=== PATIENT | female | born 1940 | race Caucasian/White ===

== ENCOUNTER 2021-03-04 07:47 | Observation (INO) | payer MEDICARE, SELFPAY ==
[2021-03-04] VITALS (8 sets, daily range): BP systolic 138–156; BP diastolic 50–89; PULSE 76–102; RESP 16–30; TEMP 36.1–36.8; O2SAT 90–100; BMI 16.7
--- NOTE | ~2021-03-04 | CT_ITS ---
EXAMINATION: CTA chest PE protocol DATE: 03/04/2021 12:18 CDT INDICATION: Abnormal chest x-ray TECHNIQUE: Computed tomographic angiography (CTA) of the chest was performed with 100 mL Omnipaque-35 0 intravenous contrast. The dose-length product was 135.65 mGy-cm. Maximum intensity projection 3D-re constructions of the aorta and other arteries were constructed by the technologist on a separate work station. Automated exposure control and iterative reconstruction technique were employed. COMPARISON: Chest x-ray dated 03/04/2021 FINDINGS: There is right lower lobe collapse. Cannot exclude underlying endobronchial lesion. No sign ificant pleural or pericardial effusion. Study is technically adequate without evidence for pulmonary embolism. There is severe emphysema. There are 2 spiculated nodules in the left upper lobe, largest measuring 1 cm greatest dimension. There is mediastinal shift to the right, consistent with right tho racic volume loss. There is scoliosis. Moderate thoracic spondylosis. No pneumothorax. There is right hilar lymphadenopathy. IMPRESSION: 1. Small spiculated left upper lobe nodules, largest measuring 1 cm. Consider follow-up low dose CT c hest in 3 months or PET/CT examination. 2: Right lower lobe collapse. Cannot exclude endobronchial lesion. Consider pulmonary consultation. 3: Emphysema. 4: Right hilar lymphadenopathy, nonspecific. Reviewed, dictated and finalized at location A. IMPRESSION: 1. Small spiculated left upper lobe nodules, largest measuring 1 cm. Consider f ollow-up low dose CT chest in 3 months or PET/CT examination. 2: Right lower lobe collapse. Cannot exclude endobronchial lesion. Consider pu lmonary consultation. 3: Emphysema. 4: Right hilar lymphadenopathy, nonspecific.
--- NOTE | ~2021-03-04 | XR_ITS ---
XR chest 2V 03/04/2021 08:18 Indication: Weakness. Loss of appetite. Procedure: PA and lateral views of the chest Comparison: No prior studies for comparison. Findings: There is right lower lobe airspace consolidation which may represent atelectasis, although superimposed pneumonia is not excluded. Small right pleural effusion. Heart size normal. The lungs ar e hyperinflated which is consistent with, but not diagnostic of chronic obstructive pulmonary disease . Impression: 1: Right lower lobe consolidation which may represent atelectasis and/or pneumonia. Cannot exclude ce ntrally obstructing endobronchial lesion. 2: Small right pleural effusion. Reviewed, dictated and finalized at location A. Impression: 1: Right lower lobe consolidation which may represent atelectasis and/or pneumo emelina. Cannot exclude centrally obstructing endobronchial lesion. 2: Small right pleural effusion.
--- NOTE | 2021-03-04 07:56 | ECG_ITS ---
Measurements Intervals [place] Rate: 78 P: 52 DE: 131 QRS: 65 QRSD: 106 T: 123 QT: 401 QTc: 457 Interpretive Statements SINUS RHYTHM VENTRICULAR PREMATURE COMPLEX BASELINE ARTIFACT- I, II, III, AVR, AVL, AVF, V1, V3-V6 BORDERLINE ECG Electronically Signed On 03-04-2021 16:33:23 CDT by Jose Arriaga D.O.
[2021-03-04 08:20] LABS: Basophils Absolute Auto 0.1 K/mm3 (0.0-0.1); Basophils Percent Auto 0.4 % (0.2-1.2); Hematocrit 46.2 % (37.0-47.0); Hemoglobin 15.5 g/dL (12.0-15.0); Immature Granulocyte Percent A 0.7 % (0-0.5); Lymphocytes Absolute Auto 1.92 K/mm3 (0.9-3.2); Lymphocytes Percent Auto 13.7 % (18.3-44.2); Mean Corpuscular HGB Conc 33.5 g/dl (32-36); Mean Corpuscular Hemoglobin 31.5 pg (26-34); Mean Corpuscular Volume 93.9 fl (80-100); Mean Platelet Volume 9.8 fl (7.4-10.4); Monocytes Absolute Auto 1.4 K/mm3 (0.1-0.6); Monocytes Percent Auto 9.9 % (2.6-8.5); Neutrophils Absolute Auto 10.6 K/mm3 (1.3-6.7); Neutrophils Percent Auto 75.3 % (45.5-73.1); Platelet Count Result 349 k/mm3 (150-375); Red Blood Count 4.92 M/mm3 (4.2-5.4); Red Cell Distribution Width 13.2 % (11.5-14.5)
[2021-03-04 08:30] LABS: Alanine Aminotransferase 14 U/L (4-35); Albumin Level 3.7 g/dL (3.5-5.1); Alkaline Phosphatase 143 U/L (38-126); Anion Gap 16 mmol/L (8-16); Aspartate Amino Transferase 25 U/L (14-36); Bilirubin,Total 0.8 mg/dL (0.2-1.3); Blood Urea Nitrogen 9 mg/dL (7-17); Calcium 9.7 mg/dL (8.4-10.2); Carbon Dioxide 23 mmol/L (22-30); Chloride 96 mmol/L (98-107); Estimated CRCL calculation 65 ml/min; Estimated Glomerular Filt Rate > 60; Glucose 121 mg/dL (65-110); Potassium 3.5 mmol/L (3.4-5.0); Sodium 135 mmol/L (137-145)
--- NOTE | 2021-03-04 12:41 | ED.GENADULT ---
HPI - General Adult General Chief complaint: Weakness Stated complaint: no appetite Time Seen by Provider: 03/04/21 11:13 Source: patient History of Present Illness HPI narrative: Patient is a 81 y/o female complaining of mild to moderate generalized weakness for last 3 days. She states her weakness is worsened by minimal exertion. She has to hold onto things to walk. She also feels sweaty and has chills at times. She has poor appetite. She has no fever, chest pain, cough or SOB. Related Data Home Medications Medication Instructions Recorded Confirmed tramadol 50 mg 03/04/21 Allergies Allergy/AdvReac Type Severity Reaction Status Date / Time No Known Allergies Allergy Unknown Verified 03/04/21 16:00 Review of Systems Constitutional: Constitutional: Reports chills, Reports excessive sweating, Denies fever(s), Denies headache(s) and Reports weakness Eyes: Eyes: Denies blurry vision ENT: Denies headache(s) and Denies neck pain Cardiovascular: Cardiovascular: Denies chest pain and Denies dyspnea Respiratory: Respiratory: Denies cough and Denies dyspnea Gastrointestinal: Gastrointestinal: Denies abdominal pain, Denies diarrhea, Denies nausea and Denies vomiting Genitourinary: Genitourinary: Denies hematuria and Denies dysuria Musculoskeletal: Musculoskeletal: Denies back pain and Denies neck pain Neurologic: Denies headache(s) and Reports weakness PMFSH Past Medical History Medical History Diverticulitis (08/2007) History of peritonitis Following hysterectomy and appendectomy. Surgical History Surgical History (Updated 03/04/21 @ 15:46 by Mónica Nelson PA-C) History of appendectomy History of cataract extraction History of colonoscopy with polypectomy (08/14/07) Benign rectal polyps with evidence of diverticulosis and internal hemorrhoids. History of hysterectomy Family History Family History Other Uterine cancer Social History Social History (Updated 03/04/21 @ 15:46 by Mónica Nelson PA-C) Social History: . Lives in her own home. She has 1 daughter. Two pack-a-day smoker for about 50 years Exam Const: General: no acute distress and well developed Orientation/consciousness: oriented to person, oriented to place, oriented to time and patient oriented x3 HENMT: Head: normocephalic Ears: external ears normal General nose exam: Normal external nose present Eyes: General: appearance normal, both eyes and all related structures Conjunctivae: conjunctivae normal Neck: Neck: normal visual inspection and full ROM Chest: Chest palpation & inspection: normal inspection of the chest and no tenderness Resp: Effort & Inspection: normal respiratory effort Auscultation: clear to auscultation bilaterally Cardio: Rate: regular rate Rhythm: regular rhythm GI: GI Palp: No abdominal tenderness and Yes Soft to palpation Skin: General skin exam: normal color and turgor normal Neuro: General: oriented to person, oriented to place, oriented to time and patient oriented x3 Cognition (Neuro): normal cognition Extrem: General: normal to inspection, full ROM and no pedal edema Psych: Appearance: grossly normal Mental Status: mental status grossly normal Affect: normal affect Course Consultations Consultation #1: Discussed with MEDARDO Sales, who agrees to admit. Date: 03/04/21 Time: 13:02 Consultation #2: Discussed with Dr. Chong, who agrees to consult. Date: 03/04/21 Time: 15:43 Vital Signs Vital signs: Vital Signs Temperature 36.6 C 03/04/21 07:53 Pulse Rate 102 H 03/04/21 07:53 Respiratory Rate 16 03/04/21 07:53 Blood Pressure 148/71 H 03/04/21 07:53 Pulse Oximetry 92 03/04/21 07:53 Temperature 36.8 C 03/04/21 11:50 Pulse Rate 77 03/04/21 15:19 Respiratory Rate 16 03/04/21 15:19 Blood Pressure 146/62 H 03/04/21 1
[2021-03-04 13:28] LABS: Lactic Acid Reflex 1.1 mmol/L (0.7-2.1)
[2021-03-04 14:11] LABS: Add Urine Microscopic? YES; Appearance Urine Clear (Clear); Bilirubin Urine Negative (Negative); Blood Urine 1+ (Negative); Color Urine Yellow (Yellow); Glucose Urine UA Negative (Negative); Ketones Urine 2+ mg/dL (Negative); Leukocyte Esterase Ur Negative LEU/UL (Negative); Mucus Urine Rare /lpf; Nitrate Urine Positive (Negative); Protein Urine 2+ mg/dL (Negative); Squamous Epithelial Cell Urine Rare /hpf (Few); Urobilinogen Urine Negative mg/dL (<2.0)
[2021-03-04 14:30] LABS: Specific Grav Ur 1.053 (1.001-1.035)
--- NOTE | 2021-03-04 15:31 | ADMGEN ---
This patient, Christa Kenny, was admitted to 3 Med Surg Room 307-01 at 1530. Patient/family oriented to hospital policies and general routines including ID bracelet, bed and alarms, visiting hours, pain management, procedures, bathroom and other care routines, personal items, smoking policy, room service/diet, and visiting hours. Information on how to activate the Rapid Response Team has been discussed. Patient/Family are encouraged to report perceived risks to care and to ask questions if they do not understand what they are told or what they should do.
--- NOTE | 2021-03-04 15:45 | PM.IMHP ---
H&P: HPI History of Present Illness Date/Time: 03/04/21 15:45 <Mónica Nelson PA-C - Last Filed: 03/04/21 23:49> Chief Complaint: Weakness. <Mónica Nelson PA-C - Last Filed: 03/04/21 23:49> Narrative: This is an 81-year-old female smoker who presented to the emergency department earlier today with complaints of weakness. She has lost 20 lb unintentionally within the last 6 months or so and it sounds as though her appetite has been next to nothing these past several days. In addition to poor oral intake, she has gotten progressively more weak which prompted her visit today. A chest x-ray showed right lower lobe consolidation which may represent atelectasis or pneumonia and a subsequent chest CTA showed a small spiculated left upper lobe nodules measuring up to 1 cm as well as right lower lobe collapse with possible endobronchial lesion. With further questioning she does mention a cough but that does not seem necessarily unusual for her. The cough has not been productive. She has not had a fever but reports occasional chills. She has not had chest pain, pleuritic pain, or significant shortness of breath. She also denies nausea, vomiting, and diarrhea. No sinus congestion, rhinorrhea, otalgia, or odynophagia. She denies sick contacts. No history of malignancy. No dysphagia or concerns for aspiration. <Mónica Nelson PA-C - Last Filed: 03/04/21 23:49> Review of Systems Review of Systems: Twelve systems were reviewed with pertinent positives and negatives as per HPI. Except as documented, all other systems were reviewed and are negative. <Mónica Nelson PA-C - Last Filed: 03/04/21 23:49> [facility] Past Medical History Medical History: Medical History (Updated 03/05/21 @ 10:17 by Luis A Chong MD) Diverticulitis (08/2007) History of peritonitis Following hysterectomy and appendectomy. Nicotine dependence <Mónica Nelson PA-C - Last Filed: 03/04/21 23:49> Surgical History Surgical History: Surgical History (Updated 03/04/21 @ 15:46 by Mónica Nelson PA-C) History of appendectomy History of cataract extraction History of colonoscopy with polypectomy (08/14/07) Benign rectal polyps with evidence of diverticulosis and internal hemorrhoids. History of hysterectomy <Mónica Nelson PA-C - Last Filed: 03/04/21 23:49> Family History Family History: Family History Other Uterine cancer <Mónica Nelson PA-C - Last Filed: 03/04/21 23:49> Social History Social History: Social History (Updated 03/04/21 @ 23:46 by Mónica Nelson PA-C) Social History: . Lives in her own home. She has 1 daughter. Two pack-a-day smoker for 64 years. Surrogate decision maker: Priti Gomes, daughter. Code status: Full code. <Mónica Nelson PA-C - Last Filed: 03/04/21 23:49> Meds Home Medications and Allergies Home medications: Home Medications Medication Instructions Recorded Confirmed Type tramadol 50 mg PO Q6H 03/04/21 03/04/21 History <Mónica Nelson PA-C - Last Filed: 03/04/21 23:49> Allergies/Adverse reactions: Allergies Allergy/AdvReac Type Severity Reaction Status Date / Time No Known Allergies Allergy Unknown Verified 03/04/21 16:00 <Mónica Nelson PA-C - Last Filed: 03/04/21 23:49> Vital Signs Vital Signs - 24 hr 03/04/21 07:53 03/04/21 11:50 03/04/21 13:44 Temperature 97.9 F 98.3 F Pulse Rate 102 H 76 81 Respiratory Rate 16 30 H 30 H Blood Pressure 148/71 H 156/65 H 138/89 Pulse Oximetry 92 95 100 03/04/21 15:19 Temperature Pulse Rate 77 Respiratory Rate 16 Blood Pressure 146/62 H Pulse Oximetry 100 <Mónica Nelson PA-C - Last Filed: 03/04/21 23:49> Exam Narrative: General: Thin, frail elderly female sitting up in bed no distress. Weight: 40.1 kg. BMI: 16.7. HEENT: Normocephalic, atraumatic. PERRL, EOMI.
[2021-03-04] MEDS: SODIUM CHLORIDE 0.9% IV 1,000 ML 75 ML IV CONT (17:38)
[2021-03-05] VITALS (8 sets, daily range): BP systolic 135–176; BP diastolic 45–74; PULSE 70–92; RESP 14–18; TEMP 35.9–37.2; O2SAT 90–93; BMI 16.7
[2021-03-05 06:42] LABS: Hematocrit 40.7 % (37.0-47.0); Hemoglobin 13.9 g/dL (12.0-15.0); Mean Corpuscular HGB Conc 34.2 g/dl (32-36); Mean Corpuscular Volume 90.6 fl (80-100); Mean Platelet Volume 10.2 fl (7.4-10.4); Platelet Count Result 384 k/mm3 (150-375); Red Blood Count 4.49 M/mm3 (4.2-5.4); White Blood Count 13.7 K/mm3 (4.5-10.0)
[2021-03-05 06:50] LABS: Anion Gap 11 mmol/L (8-16); Blood Urea Nitrogen 7 mg/dL (7-17); Calcium 9.6 mg/dL (8.4-10.2); Carbon Dioxide 26 mmol/L (22-30); Chloride 100 mmol/L (98-107); Estimated CRCL calculation 70 ml/min; Estimated Glomerular Filt Rate > 60; Glucose 114 mg/dL (65-110); Magnesium 2.2 mg/dL (1.6-2.3); Potassium 3.2 mmol/L (3.4-5.0); Sodium 137 mmol/L (137-145)
[2021-03-05] MEDS: ENOXAPARIN 40 MG/0.4 ML SYRINGE SUB-Q (08:30)
[2021-03-05] MEDS: POTASSIUM CHLORIDE 20 MEQ TABLET 40 MEQ PO (08:30)
--- NOTE | 2021-03-05 10:08 | PM.CNPUL ---
Assessment and Plan Assessment and plan (1) Atelectasis, right: Code(s): J98.11 - Atelectasis Status: Acute Assessment and Plan: This 81-year-old female presented with nonspecific respiratory symptoms such as weight and appetite loss of several weeks duration. Diagnostic studies showed complete right lower lobe collapse with possible endobronchial lesion, diffuse centrilobular emphysema and small lung nodule in the left upper lobe measuring less than 3 cm in diameter. In addition there is right hilar lymphadenopathy. There is significant overinflation of the left lung, and mediastinal shifting to the right, which suggest chronic nature of the right lower lobe atelectasis. The right lower lobe collapse is most likely related to endobronchial tumor and less likely to aspiration of a foreign body. No recent chest imaging studies are available for comparison. Had a lengthy discussion with the patient regarding further workup. I specifically told the patient that she may have cancer in the right lung causing collapse of the right lower lobe and for that reason I suggested bronchoscopy. The patient did not want to have bronchoscopy reasoning that even if this is cancer she does not want to have any treatment for it. (2) Incidental lung nodule, less than or equal to 3mm: Code(s): R91.1 - Solitary pulmonary nodule Status: Acute Assessment and Plan: The left upper lobe nodule is highly suspicious for malignancy. The nodule is too small to be biopsied at this point. I would suggest repeat chest CT in about 3 months. (3) Emphysema lung: Code(s): J43.9 - Emphysema, unspecified Status: Acute Assessment and Plan: Patient has had history of heavy smoking for many years. Chest CT showing centrilobular emphysema bilaterally. Currently she is not on any treatment for COPD. She will need pulmonary function testing and follow-up in the outpatient Pulmonary Clinic. Prior to discharging home, I would do assessment for possible treatment with home oxygen. (4) Weight loss: Code(s): R63.4 - Abnormal weight loss Status: Acute History of Present Illness History of Present Illness Consult date: 03/05/21 Chief complaint: pneumonia Narrative: This 81-year-old female presented to the emergency room complaining of weight loss and loss of appetite. The patient stated that her appetite has been very poor over the last few weeks. She also has lost 20 lb over the last couple of months. She denied having other respiratory symptoms such as hemoptysis fever chills, orthopnea, wheezing or chest pain. She has occasional dry cough with no sputum production. She denied having shortness of breath with exertion or at rest. Upon questioning she admitted having had 1 episode of choking approximately 3-4 years ago, while eating steak. Workup in the emergency room with CT PA showed right lower lobe collapse, with possible endobronchial lesion, centrilobular emphysema bilaterally, and small spiculated nodule in the left upper lobe. Review of Systems Review of Systems: The patient denied having shortness of breath on exertion as stated above. She has lost 20 lb over the last few months. She has no chest pain. She denied having orthopnea. She has occasional night sweats. She denied having abdominal pain. She has occasional soft BMs. She has a chronic knee and back arthritis. She has no urinary complaints. She has no skin rashes. [facility] Past Medical History Medical History (Updated 03/05/21 @ 10:17 by Luis A Chong MD) Diverticulitis (08/2007) History of peritonitis Following hysterectomy and appendectomy. Nicotine dependence Surgical History Surgical History (Updated 03/04/21 @ 15:46 by Mónica Nelson PA-C) History of appendectomy History of cataract extraction History of colonoscopy with polypectomy (08/14/07) Benign rectal polyps with evidence of diverticulosis and intelligence intern
--- NOTE | 2021-03-05 12:11 | PM.IMPN ---
Progress Note: A&P Assessment and Plan (1) Right lower lobe pneumonia: Code(s): J18.9 - Pneumonia, unspecified organism Status: Acute (2) Abnormal chest CT: Code(s): R93.89 - Abnormal findings on diagnostic imaging of other specified body structures Status: Acute (3) Dehydration: Code(s): E86.0 - Dehydration Status: Acute (4) Weakness: Code(s): R53.1 - Weakness Status: Acute (5) Abnormal urinalysis: Code(s): R82.90 - Unspecified abnormal findings in urine Status: Acute Additional Plan The patient presents today with weakness and poor oral intake for the last several days however she has lost 20 lb unintentionally in the last 6 months, or last. She has evidence of right lower lobe pneumonia on imaging though there is suspicion for possible endobronchial lesion thus this could be postobstructive pneumonia as well. Will continue with ceftriaxone and azithromycin for now. Sputum to be attempted for culture. Pulmonology was consulted by the emergency department physician regarding the possible mass though the patient tells me that she would not probably want to have any treatment if it were to be cancer. She will be cautiously hydrated with close monitoring of volume status. Initiate fall precautions. PT/OT consulted. Urinalysis is abnormal however she has no symptoms to suggest infection at this time. She declines the need for nicotine patch. 03/05 Interval history: patient remains clinically stable seen by parts chaser and discussed, recommending bronchoscopy to further evaluate lung mass however patient is refusing, there is a concern pneumonia most likely community-acquired will continue ceftriaxone and azithromycin, patient with poor appetite and generalized weakness will consult dietitian and provide PT OT, patient will benefit with acute rehab, there is a concern patient may have COVID-19, patient is tested an isolated continue to monitor and further recommendation to follow. Subjective Date/time seen: 03/05/21 12:11 This is an 81-year-old female smoker who presented to the emergency department earlier today with complaints of weakness. She has lost 20 lb unintentionally within the last 6 months or so and it sounds as though her appetite has been next to nothing these past several days. In addition to poor oral intake, she has gotten progressively more weak which prompted her visit today. A chest x-ray showed right lower lobe consolidation which may represent atelectasis or pneumonia and a subsequent chest CTA showed a small spiculated left upper lobe nodules measuring up to 1 cm as well as right lower lobe collapse with possible endobronchial lesion. With further questioning she does mention a cough but that does not seem necessarily unusual for her. The cough has not been productive. She has not had a fever but reports occasional chills. She has not had chest pain, pleuritic pain, or significant shortness of breath. She also denies nausea, vomiting, and diarrhea. No sinus congestion, rhinorrhea, otalgia, or odynophagia. She denies sick contacts. No history of malignancy. No dysphagia or concerns for aspiration. 03/05 Interval history: patient remains clinically stable seen by parts chaser and discussed, recommending bronchoscopy to further evaluate lung mass however patient is refusing, there is a concern pneumonia most likely community-acquired will continue ceftriaxone and azithromycin, patient with poor appetite and generalized weakness will consult dietitian and provide PT OT, patient will benefit with acute rehab, there is a concern patient may have COVID-19, patient is tested an isolated continue to monitor and further recommendation to follow. Review of Systems Review of Systems: All systems reviewed & are unremarkable except as noted in HPI and below Exam Narrative: elderly frail, malnourished Patient is comfortable, NAD HEENT: eyes are clear and none icteric PATY
[2021-03-05 16:47] LABS: SARS-CoV-2 RNA PCR Negative
[2021-03-06 02:19] VITALS: PULSE 70; RESP 18; O2SAT 92
[2021-03-06 06:00] VITALS: BP 168/74; PULSE 73; RESP 16; TEMP 36.9; O2SAT 95
[2021-03-06 06:58] LABS: Hematocrit 39.8 % (37.0-47.0); Hemoglobin 13.2 g/dL (12.0-15.0); Mean Corpuscular HGB Conc 33.2 g/dl (32-36); Mean Corpuscular Hemoglobin 31.1 pg (26-34); Mean Corpuscular Volume 93.6 fl (80-100); Mean Platelet Volume 10.4 fl (7.4-10.4); Platelet Count Result 363 k/mm3 (150-375); Red Blood Count 4.25 M/mm3 (4.2-5.4); Red Cell Distribution Width 13.1 % (11.5-14.5); White Blood Count 12.3 K/mm3 (4.5-10.0)
[2021-03-06 07:23] LABS: Anion Gap 6 mmol/L (8-16); Blood Urea Nitrogen 5 mg/dL (7-17); Calcium 9.1 mg/dL (8.4-10.2); Carbon Dioxide 26 mmol/L (22-30); Chloride 102 mmol/L (98-107); Estimated CRCL calculation 70 ml/min; Estimated Glomerular Filt Rate > 60; Glucose 103 mg/dL (65-110); Potassium 3.6 mmol/L (3.4-5.0); Sodium 134 mmol/L (137-145)
--- NOTE | 2021-03-06 07:23 | PM.IMPN ---
Progress Note: A&P Additional Plan START OF DOCTOR GUY?S PROGRESS NOTE Subjective: The patient reports no complaints at this time. She inquires about discharge. She denies fever, rigors, nausea, vomiting, cough, wheeze, abdominal pain, chest pain, dyspnea, or any other constitutional complaints. I previously spoke with her regarding her medical condition and regarding the prospects of enrolling in hospice. I have answered all questions Objective: General: -Alert -No acute distress -No dyspnea -No tachypnea Heart: -Regular rate -Regular rhythm -No murmurs -No gallops -No rubs Lungs: -No wheeze -No rhonchi -No rales Abdomen: -Normal bowel sounds in all four quadrants -No rebound -No guarding -No tenderness Extremities: -2/4 pulse in all four extremities -No clubbing -No cyanosis -No edema Additional Details / Additional Findings / Exceptions / Miscellaneous: Pertinent Laboratory Results / Pertinent Radiology Results / Pertinent Diagnostic Results / Pertinent Vital Signs: Blood pressure 168/74, white blood cell count 12.3 Assessment / Plan: Presumed postobstructive pneumonia. A Zithromax 500 mg IV daily plus Rocephin 1 g IV daily Urinary tract infection. Rocephin 1 g IV daily Left upper lobe nodule and right lower lung collapse. Likely malignancy. Patient declines bronchoscopy as she indicates that she would not opt for treatment Diverticulosis Hypertension. Hydralazine 50 mg p.o. t.i.d. Smoker. Patient counseled regarding smoking cessation COPD, non O2 dependent Hypokalemia. Will monitor potassium levels intermittently and supplement as necessary DVT prophylaxis. Lovenox 40 mg subcutaneously daily Disposition: Patient appears medically stable for discharge on this day of March 06, 2021. I will discuss with case management/social work in conjunction with hospice END OF DOCTOR GUY?S PROGRESS NOTE Subjective Date/time seen: 03/06/21 07:23 Objective Data Vital Signs Vital Signs: Vital Signs - 24 hr 03/05/21 10:15 03/05/21 14:10 03/05/21 18:00 Temperature 97.2 F L 97.1 F L 98.7 F Pulse Rate 73 73 80 Respiratory Rate 14 16 16 Blood Pressure 147/57 H 135/45 L 156/62 H Pulse Oximetry 91 92 93 03/05/21 22:00 03/05/21 22:29 03/06/21 02:19 Temperature 98.9 F Pulse Rate 73 70 70 Respiratory Rate 18 18 Blood Pressure 158/52 H 145/74 H Pulse Oximetry 91 92 92 03/06/21 06:00 Temperature 98.5 F Pulse Rate 73 Respiratory Rate 16 Blood Pressure 168/74 H Pulse Oximetry 95 Intake/Output Intake/Output: Intake & Output 03/03/21 03/04/21 03/05/21 03/06/21 23:59 23:59 23:59 23:59 Intake Total 780 2152 150 Output Total 400 400 900 Balance 380 1752 -750 Meds/Results Medications: Active Medications Generic Name Dose Route Start Last Admin Trade Name Freq PRN Reason Stop Dose Admin Albuterol 2 puff 03/04/21 15:58 Albuterol Sulfate (*Sp) Aerosol 1 Puff INHALATION QIDRT PRN Shortness Of Breath Enoxaparin Sodium 40 mg 03/05/21 09:00 03/05/21 08:30 Enoxaparin 40 Mg/0.4 Ml Syringe SUB-Q 40 mg DAILY ILSA Administration Hydralazine HCl 50 mg 03/06/21 09:00 Hydralazine Hcl 50 Mg Tablet PO TID ILSA Ceftriaxone Sodium/Dextrose 1 gm in 50 mls @ 100 mls/hr 03/05/21 12:00 03/05/21 12:23 Rocephin 1 Gm/D5w 50 Ml IVPB Infused NOON ILSA Infusion Azithromycin 500 mg in 250 mls @ 250 mls/hr 03/05/21 12:00 03/05/21 14:45 Zithromax IVPB Infused NOON ILSA Infusion Tramadol HCl 50 mg 03/04/21 23:49 Tramadol Hcl (*Crx) 50 Mg Tablet PO Q6H PRN Pain 4-10 Radiology Results: ITS Impressions Chest X-Ray 03/04/21 08:19 Impression: 1: Right lower lobe consolidation which may represent atelectasis and/or pneumonia. Cannot exclude centrally obstructing endobronchial lesion. 2: Small right pleural effusion. Chest CTA 03/04/21 12:18 IMPRESSION: 1.
--- NOTE | 2021-03-06 07:31 | PM.DS ---
DS: Admitting Diagnosis Discharge Date 7:32 a.m. on March 06, 2021 Admitting Diagnosis Presumed postobstructive pneumonia DS: Summary Hospital Course Hospital Course: See discharge summary below Time Spent with Patient Time attestation: Total time spent providing and/or coordinating discharge services: START OF DOCTOR GUY?S DISCHARGE SUMMARY Date of Admission: March 04, 2021 Date of Discharge: 7:31 a.m. on March 06, 2021 Primary Diagnosis: Presumed postobstructive pneumonia Secondary Diagnosis: Left upper lobe nodule for which patient declined bronchoscopy and indicates she would decline treatment if malignancy was detected Right lower lobe collapse, patient declined bronchoscopy Urinary tract infection Diverticulosis Hypertension Smoker paragraph COPD paragraph hypokalemia Consultations: None Disposition: The patient may follow up with her primary care physician as needed Prior to discharge, will request case management/social work evaluate the patient so that she may receive a referral for hospice Discharge Medications: Azithromycin 250 mg p.o. daily. Quantity 7. 0 refills Vantin 200 mg p.o. b.i.d.. Quantity 14. 0 refills Ultram 50 mg p.o. q.6 hours Hydralazine 50 mg p.o. t.i.d. END OF DOCTOR GUY?S DISCHARGE SUMMARY DS: Data Data Completed and Pending Labs on day of discharge: Labs from last 24 hours 03/06/21 03/06/21 03/05/21 06:13 06:13 10:47 WBC 12.3 H RBC 4.25 Hgb 13.2 Hct 39.8 MCV 93.6 MCH 31.1 MCHC 33.2 RDW 13.1 Plt Count 363 MPV 10.4 Sodium 134 L Potassium 3.6 Chloride 102 Carbon Dioxide 26 Anion Gap 6 L BUN 5 L Creatinine 0.30 L Estim Creat Clear Calc 70 Estimated GFR > 60 Glucose 103 Calcium 9.1 TSH (Reflex) Ur L.pneumophila Ag Pending SARS-CoV-2 RNA (RT-PCR) Urine Pneumococcal Ag Pending 03/05/21 03/04/21 06:11 14:49 WBC RBC Hgb Hct MCV MCH MCHC RDW Plt Count MPV Sodium Potassium Chloride Carbon Dioxide Anion Gap BUN Creatinine Estim Creat Clear Calc Estimated GFR Glucose Calcium TSH (Reflex) 1.260 Ur L.pneumophila Ag SARS-CoV-2 RNA (RT-PCR) Negative Urine Pneumococcal Ag Preliminary micro results at discharge 03/04/21 13:47 Blood Culture - Preliminary Blood 03/04/21 13:47 Blood Culture - Preliminary Blood Discharge Plan Discharge Consulting providers: Luis A Chong Discharging Clinician: Dr. Altman Patient Disposition: Home, Self-Care Activity: as tolerated Diet: low sodium Discharge Instructions: Patient may follow up with her primary care physician as needed Prior to discharge, a request that the patient developed a case management/social work so that she may be referred to hospice which I have discussed with the patient already Patient Instructions: Antibiotic Form, How to Stop Smoking (DC), Pneumonia (DC) Stand Alone Forms: General Discharge Information Follow-up/Referrals: Carina Altman DO [Physician] - Discharge Medications: New hydralazine 50 mg Tablet 50 mg PO TID Qty: 90 RF: 0 azithromycin 250 mg tablet 250 mg PO DAILY 7 Days Qty: 7 RF: 0 cefpodoxime 200 mg tablet 200 mg PO BID Qty: 14 RF: 0 Continued tramadol 50 mg tablet 50 mg PO Q6H RF: 0 Date of admission: 03/04/21 14:01 Primary Care Provider: FARHATDULCE Admitting Provider: Madiha Garner Attending physician on admission: Madiha Garner Condition: Stable Quality VTE Prophylaxis VTE prophylaxis: pharmacologic ordered
[2021-03-06 08:05] VITALS: BP 175/61
[2021-03-06 08:10] VITALS: BP 173/61
[2021-03-06 08:15] VITALS: BP 167/67
[2021-03-06] MEDS: ENOXAPARIN 40 MG/0.4 ML SYRINGE SUB-Q (08:21)
[2021-03-06] MEDS: hydrALAZINE HCL 50 MG TABLET PO (08:21)
[2021-03-08 17:35] LABS: Legionella pneumophila Ag Ur Not Detected (Not Detected)
[2021-03-08 19:29] LABS: Pneumococcal Antigen Urine Not Detected (Not Detected)
== END 2021-03-06 09:45 | disposition home or self-care (01) ==
LOC: ANHED 11:13 → ANH3MEDSUR 15:51
PROVIDERS: Physician Assistant; Admitting Provider Family Medicine; Emergency Provider Emergency Medicine; PCP Nurse Practitioner Family; Visit Provider Internal Medicine
DX: J98.11 Atelectasis (principal); R91.1 Solitary pulmonary nodule; R93.89 Abnormal findings on diagnostic imaging of other specified body structures; N39.0 Urinary tract infection, site not specified; E86.0 Dehydration; R53.1 Weakness; J43.9 Emphysema, unspecified; F17.210 Nicotine dependence, cigarettes, uncomplicated; R63.4 Abnormal weight loss; I10 Essential (primary) hypertension; Z20.822 Contact with and (suspected) exposure to COVID-19; Z68.1 Body mass index [BMI] 19.9 or less, adult
CPT/HCPCS: 36415; 51701; 71046; 71275; 80048; 80053; 81001; 83605; 83735; 84443; 85025; 85027; 87040; 87086; 87147; 87181; 87186; 87449; 87899; 93005; 96361; 96365; 96367; 96372; 97165; 99285; A9270; C9803; G0378; J0456; J0696; J1650; J7030; Q9967; U0003; U0005

== ENCOUNTER 2022-01-07 15:40 | Outpatient (CLI) | payer MEDICARE, SELFPAY ==
--- NOTE | ~2022-01-07 | MR_ITS ---
EXAMINATION: MR lumbar spine wo con DATE: 01/07/2022 16:43 INDICATION: Lumbar degenerative disc disease. Chronic low back pain radiating down both legs. TECHNIQUE: Magnetic resonance imaging (MRI) of the lumbar spine was performed without intravenous con trast. Sequences included sagittal T2-weighted FSE, sagittal T2-weighted FS FSE, sagittal T1-weighted FSE, and axial T2-weighted FSE. COMPARISON: Lumbar spine MRI 05/10/2013 FINDINGS: There is 24 degrees dextroscoliosis of lumbar spine. There is 3 mm retrolisthesis of L3 on L4, 4 mm anterolisthesis of L4 on L5, and 6 mm anterolisthesis of L5 on S1. There is mildly decreased disc height at L2-L3. There is severely decreased disc height from L3-L4 through L5-S1 with endplate remodeling. The distal spinal cord signal intensity is normal. The conus medullaris is at L2. 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 The following disc levels are specifically discussed: L1-L2: The disc is mildly bulging. There is mild bilateral facet joint osteoarthritis. There is mild right neural foraminal stenosis. There is mild central canal stenosis. L2-L3: The disc is bulging. There is moderate right and mild left facet joint osteoarthritis. There i s mild bilateral neural foraminal stenosis. There is mild central canal stenosis. L3-L4: The disc is bulging and has an annular fissure. There is moderate bilateral facet joint hypert rophy. There is mild right and moderate left neural foraminal stenosis. There is mild central canal s tenosis with posterior decompression. L4-L5: The disc is bulging and has an annular fissure. There is severe bilateral facet joint osteoart hritis. There is moderate bilateral neural foraminal stenosis. There is mild central canal stenosis w ith posterior decompression. L5-S1: The disc is bulging and has an annular fissure. There is severe bilateral facet joint osteoart hritis. There is moderate right and mild left neural foraminal stenosis. There is no central canal st enosis. IMPRESSION: 1. Severe lumbar spondylosis, worsened from 05/10/2013. 2. Lumbar dextroscoliosis. Reviewed, dictated and finalized at location A.
== END 2022-01-07 15:41 | disposition home or self-care (01) ==
PROVIDERS: PCP Nurse Practitioner Family; Visit Provider Nurse Practitioner Family
DX: M51.36 Other intervertebral disc degeneration, lumbar region (principal); M47.816 Spondylosis without myelopathy or radiculopathy, lumbar region; M41.86 Other forms of scoliosis, lumbar region
CPT/HCPCS: 72148

== ENCOUNTER 2022-07-01 14:26 | Inpatient (IN) | payer MEDICARE, SELFPAY ==
[2022-07-01] VITALS (19 sets, daily range): BP systolic 121–150; BP diastolic 48–88; PULSE 73–101; RESP 18–28; TEMP 36.7–37.3; O2SAT 87–98; BMI 21.4
--- NOTE | ~2022-07-01 | XR_ITS ---
EXAMINATION: XR chest 1V portable Exam Date/Time: 07/01/2022 16:00 LANDSCAPE ARCHITECTURE TEACHER HISTORY: cough Comparison: X-ray chest and CTPA 03/04/2021. RESULT: Lines, tubes, and devices: None. Lungs and pleura: Low lung volumes, worse on the right. New significant right hemidiaphragm elevatio n. Diffuse reticular and patchy groundglass opacities. Persistent obscuration of the right heart bord er and right hemidiaphragm. Possible right lateral costophrenic angle blunting. Redemonstration of a left upper lobe nodule. Cardiomediastinal silhouette: Stable. Other: No acute osseous or upper abdominal finding. IMPRESSION: Diffuse pulmonary opacities may represent edema versus atypical infection. New right hemidiaphragm el evation. Possible small right pleural effusion. Persistent right middle and lower lobe collapse. Pers istent left upper lobe nodule. Recommendation from the prior CT are unchanged. Reviewed, dictated and finalized at location K. SCAPE ARCHITECTURE TEACHER IMPRESSION: Diffuse pulmonary opacities may represent edema versus atypical infection. New right hemidiaphragm elevation. Possible small right pleural effusion. Persisten t right middle and lower lobe collapse. Persistent left upper lobe nodule. Gideon mmendation from the prior CT are unchanged.
--- NOTE | ~2022-07-01 | CT_ITS ---
EXAMINATION: CT diagnostic chest wo con DATE: 07/01/2022 17:17 INDICATION: lung nodules TECHNIQUE: Computed tomography (CT) of the chest was performed with 100 mL Omnipaque-350 intravenous contrast. Automated exposure control and iterative reconstruction technique were employed. The dose-l ength product was 119.78 mGy-cm. COMPARISON: None. FINDINGS: CHEST: Thoracic aorta: Anemia. Mild ectasia. Moderate arch calcification. Lung parenchyma and airways: Significant interval increase in size of the previously described left u pper lobe nodule now measuring 22 mm. The additional spiculated left upper lobe nodule that was previ ously detected is smaller and is likely benign. New 11 millimeter nodule in the left upper lobe. Pers istent right middle and right lower lobe collapse. Fluid-filled/obstructed right middle and lower lob e bronchi. Thoracic inlet, axillae and chest wall: No thyroid or soft tissue mass. No axillary lymphadenopathy. Mediastinum: Possible 3.1 cm right hilar mass. Heart and pericardium: Normal heart size. No pericardial effusion. Coronary artery calcifications: Mild. Pleura: Trace right pleural fluid collection. Upper abdomen: No significant finding. Thoracic bones: No acute osseous finding in the chest. IMPRESSION: Suspected right hilar mass measuring at least 3.1 cm, causing chronic bronchial obstruction and right middle and lower lobe collapse. Significant interval growth of the previously described left upper l obe nodule, with additional finding of a new nodule, suspicious for neoplasia. Reviewed, dictated and finalized at location K. RAL CONTROL ROOM OPERATOR IMPRESSION: Suspected right hilar mass measuring at least 3.1 cm, causing chronic bronchial obstruction and right middle and lower lobe collapse. Significant interval divya wth of the previously described left upper lobe nodule, with additional finding of a new nodule, suspicious for neoplasia.
--- NOTE | 2022-07-01 14:33 | ECG_ITS ---
Measurements Intervals [place] Rate: 86 P: 49 [place]: 118 QRS: 76 QRSD: 106 T: 64 QT: 350 QTc: 421 Interpretive Statements SINUS RHYTHM WITH SHORT [place] INTERVAL ATRIAL TRIPLET ANTEROSEPTAL INFARCT, AGE INDETERMINATE BASELINE ARTIFACT- I, II, III, AVF ABNORMAL ECG COMPARED TO ECG 03/04/2021 11:41:39 ANTEROSEPTAL INFARCT NOW PRESENT Electronically Signed On 07-01-2022 15:02:04 CHILDCARE ATTENDANT by Jose Arriaga D.O.
[2022-07-01 14:58] LABS: Basophils Absolute Auto 0.1 K/mm3 (0.0-0.1); Basophils Percent Auto 0.5 % (0.2-1.2); Eosinophils Percent Auto 0.2 % (0-4.4); Hematocrit 39.9 % (37.0-47.0); Hemoglobin 13.5 g/dL (12.0-15.0); Immature Granulocyte Absolute 0.32 K/mm3 (0.00-0.031); Immature Granulocyte Percent A 1.7 % (0-0.5); Lymphocytes Absolute Auto 1.71 K/mm3 (0.9-3.2); Lymphocytes Percent Auto 8.9 % (18.3-44.2); Mean Corpuscular HGB Conc 33.8 g/dl (32-36); Mean Corpuscular Hemoglobin 31.9 pg (26-34); Mean Corpuscular Volume 94.3 fl (80-100); Mean Platelet Volume 10.2 fl (7.4-10.4); Monocytes Absolute Auto 2.4 K/mm3 (0.1-0.6); Monocytes Percent Auto 12.6 % (2.6-8.5); Neutrophils Absolute Auto 14.6 K/mm3 (1.3-6.7); Neutrophils Percent Auto 76.1 % (45.5-73.1); Platelet Count Result 358 k/mm3 (150-375); Red Blood Count 4.23 M/mm3 (4.2-5.4); Red Cell Distribution Width 14.3 % (11.5-14.5); White Blood Count 19.2 K/mm3 (4.5-10.0)
[2022-07-01 15:07] LABS: Alanine Aminotransferase 33 U/L (6-35); Albumin Level 3.3 g/dL (3.5-5.1); Alkaline Phosphatase 208 U/L (38-126); Anion Gap 5 mmol/L (8-16); Aspartate Amino Transferase 30 U/L (14-36); Bilirubin,Total 0.9 mg/dL (0.2-1.3); Blood Urea Nitrogen 11 mg/dL (7-17); Calcium 8.6 mg/dL (8.4-10.2); Carbon Dioxide 27 mmol/L (22-30); Chloride 98 mmol/L (98-107); Estimated CRCL calculation 64 ml/min; Estimated Glomerular Filt Rate > 60; Glucose 127 mg/dL (65-110); Potassium 3.6 mmol/L (3.4-5.0); Sodium 130 mmol/L (137-145)
[2022-07-01 15:09] LABS: INR 1.2; Prothrombin Time 14.9 Seconds (11.1-14.7)
[2022-07-01 15:10] LABS: Partial Thromboplastin Time 36.4 SECONDS (22.3-36.8)
[2022-07-01] MEDS: ALBUTEROL SULFATE NEB 2.5 MG/3 ML INH 5 MG INHALATION ×2 (15:19→20:00)
[2022-07-01] MEDS: IPRATROPIUM BR 0.02% INH SOLN 0.5 MG/2.5 ML VIAL INHALATION ×2 (15:19→20:00)
[2022-07-01 16:03] LABS: Alveolar/Arterial O2 Gradient 89.2 mmHg; Carboxyhemoglobin 3.5 % THb (0-2.0); Fractional Inspired Oxygen 28 %; HCO3 ABG 26.2 mEq/l (22.0-26.0); Methemoglobin ABG 0.3 %THb (0-1.5); Modified Allen's Test Pass; Oxygen Content ABG 17.1 %vol (16.0-22.0); Oxygen Saturation ABG 95.1 % (95.0-100.0); Oxyhemoglobin 91.5 % THb (90.0-100.0); PCO2 ABG 35.3 mmHg (35.0-45.0); PO2 ABG 68.8 mmHg (80.0-100.0); PO2 FiO2 Ratio Arterial Blood 2.46 %; Reduced Hemoglobin 4.7 %THb (0-5.0); Site Drawn LEFT RADIAL; Total Hemoglobin 13.3 g/dL (12.0-18.0); pH ABG 7.488 (7.350-7.450)
[2022-07-01 16:04] LABS: Device NASAL CANNULA
[2022-07-01 16:41] LABS: Influenza A QL RT-PCR Negative (Negative); Influenza B QL RT-PCR Negative (Negative); RSV RNA, RT-PCR Negative (Negative); SARS-CoV-2 RNA PCR Negative
--- NOTE | 2022-07-01 17:37 | ED.GENADULT ---
HPI - General Adult General Chief complaint: Weakness Stated complaint: confusion, weakness Time Seen by Provider: 07/01/22 14:45 History of Present Illness HPI narrative: Patient is an 82-year-old female who presents ER with increased weakness. Patient found to be hypoxic upon arrival here and placed on oxygen. Reports cough that is chronic. Patient is a 2 pack-a-day smoker. No chest pain or chest pressure. Patient is alert and oriented x4 though he has been reported that she is slightly more confused than typical. No exertional chest discomfort. Related Data Home Medications Medication Instructions Recorded Confirmed tramadol 50 mg tablet 50 mg PO Q6H 03/04/21 03/04/21 Allergies Allergy/AdvReac Type Severity Reaction Status Date / Time No Known Allergies Allergy Unknown Verified 07/01/22 14:50 Review of Systems Review of Systems: All systems reviewed & are unremarkable except as noted in HPI and below Constitutional: Constitutional: Denies chills, Reports fatigue and Denies fever(s) ENT: Denies nasal congestion and Denies sore throat Cardiovascular: Cardiovascular: Denies chest pain, Denies rapid heart rate and Denies radiating jaw, neck or arm pain Respiratory: Respiratory: Reports chest congestion, Reports cough and Reports dyspnea Gastrointestinal: Gastrointestinal: Denies abdominal pain, Denies nausea and Denies vomiting PMF Past Medical History Medical History (Updated 07/01/22 @ 18:24 by Justin English MD) Diverticulitis (08/2007) Generalized osteoarthritis of multiple sites History of peritonitis Following hysterectomy and appendectomy. Lumbar spondylosis Nicotine dependence Surgical History Surgical History History of appendectomy History of cataract extraction History of colonoscopy with polypectomy (08/14/07) Benign rectal polyps with evidence of diverticulosis and internal hemorrhoids. History of hysterectomy Family History Family History Other Uterine cancer Social History Social History Social History: . Lives in her own home. She has 1 daughter. Two pack-a-day smoker for 64 years. Surrogate decision maker: Priti Gomes, daughter. Code status: Full code. Smoking status: Never smoker Spiritual care concerns: No Exam Narrative: GENERAL: Well-appearing, well-nourished, and in no acute distress. HEAD: Normocephalic, atraumatic. EYES: PERRL and EOMI. ENT: Mucous membranes moist. CHEST: Right lower and mid lung zone rales. Clear to auscultation left side. No respiratory distress. HEART: Regular rate and rhythm. Normal peripheral pulses. ABDOMEN: Soft, nontender, nondistended. EXTREMITIES: Normal range of motion. No edema. SKIN: Warm, dry, no rash. NEURO: Alert and oriented x3. PSYCH: Normal mood and affect. Course Course Emergency Course: Patient with new hypoxia requiring admission hospitalist service. Concern for pneumonia given new hypoxia and elevated white blood cell count. IV antibiotics ordered. Patient will receive recurrent nebulizer treatments. Patient may require CT-guided biopsy or bronc. Vital Signs Vital signs: Vital Signs Temperature 99.1 F 07/01/22 14:28 Pulse Rate 76 07/01/22 14:28 Respiratory Rate 18 07/01/22 14:28 Blood Pressure 132/48 L 07/01/22 14:28 Pulse Oximetry 90 07/01/22 14:28 Oxygen Delivery Room Air 07/01/22 14:28 Temperature 99.1 F 07/01/22 14:28 Pulse Rate 95 07/01/22 17:30 Respiratory Rate 18 07/01/22 17:30 Blood Pressure 137/69 07/01/22 17:30 Pulse Oximetry 94 07/01/22 17:30 Oxygen Delivery Nasal Cannula 07/01/22 14:46 Oxygen Flow Rate 2 07/01/22 14:46 Medical Decision Making Vital Signs Vital Signs: Vital Signs Temperature 99.1 F 07/01/22 14:28 Pulse Rate 76 07/01/22 14:28 Respiratory
[2022-07-01 17:42] LABS: Appearance Urine Slightly Cloudy (Clear); Bilirubin Urine 1+ (Negative); Blood Urine 2+ (Negative); Color Urine Yellow (Yellow); Glucose Urine UA Negative (Negative); Ketones Urine 2+ mg/dL (Negative); Leukocyte Esterase Ur Negative LEU/UL (Negative); Nitrate Urine Negative (Negative); Protein Urine 3+ mg/dL (Negative); Specific Grav Ur 1.025 (1.001-1.035); pH Urine 6.5 (5.0-9.0)
[2022-07-01 17:45] LABS: Bacteria Urine Trace /hpf; Mucus Urine Rare /lpf; RBC Urine 21-50 /hpf (0-2); Squamous Epithelial Cell Urine Rare /hpf (Few)
[2022-07-01 17:47] LABS: Add Urine Microscopic? YES
--- NOTE | 2022-07-01 20:56 | ADMGEN ---
This patient, Christa Kenny, was admitted to Medical Room 243-01. Patient/family oriented to hospital policies and general routines including ID bracelet, bed and alarms, visiting hours, pain management, procedures, bathroom and other care routines, personal items, smoking policy, room service/diet, and visiting hours. Information on how to activate the Rapid Response Team has been discussed. Patient/Family are encouraged to report perceived risks to care and to ask questions if they do not understand what they are told or what they should do.
--- NOTE | 2022-07-01 20:57 | PM.IMHP ---
H&P: HPI History of Present Illness Date/Time: 07/01/22 20:57 Chief Complaint: Generalized weakness Narrative: This is an 82-year-old female with past medical history significant for COPD/emphysema, current everyday smoker of 2 packs of cigarettes a day patient presented to the emergency room due to generalized weakness. Denies any fevers, she has a cough but is nonproductive, denies years rigors, denies chills no nausea no vomiting no diarrhea no weight loss. Preliminary workup was significant for chest x-ray was reported as: RESULT: Lines, tubes, and devices:? None. Lungs and pleura:? Low lung volumes, worse on the right. New significant right hemidiaphragm elevation. Diffuse reticular and patchy groundglass opacities. Persistent obscuration of the right heart border and right hemidiaphragm. Possible right lateral costophrenic angle blunting. Redemonstration of a left upper lobe nodule. Cardiomediastinal silhouette:? Stable. Other:? No acute osseous or upper abdominal finding. ? IMPRESSION: Diffuse pulmonary opacities may represent edema versus atypical infection. New right hemidiaphragm elevation. Possible small right pleural effusion. Persistent right middle and lower lobe collapse. Persistent left upper lobe nodule. Recommendation from the prior CT are unchanged. A CT of the chest was reported as: CHEST: Thoracic aorta: Anemia. Mild ectasia. Moderate arch calcification. Lung parenchyma and airways: Significant interval increase in size of the previously described left upper lobe nodule now measuring 22 mm. The additional spiculated left upper lobe nodule that was previously detected is smaller and is likely benign. New 11 millimeter nodule in the left upper lobe. Persistent right middle and right lower lobe collapse. Fluid-filled/obstructed right middle and lower lobe bronchi. Thoracic inlet, axillae and chest wall: No thyroid or soft tissue mass. No axillary lymphadenopathy. Mediastinum: Possible 3.1 cm right hilar mass. Heart and pericardium: Normal heart size. No pericardial effusion. Coronary artery calcifications: Mild. Pleura: Trace right pleural fluid collection. Upper abdomen: No significant finding. Thoracic bones: No acute osseous finding in the chest. IMPRESSION: Suspected right hilar mass measuring at least 3.1 cm, causing chronic bronchial obstruction and right middle and lower lobe collapse. Significant interval growth of the previously described left upper lobe nodule, with additional finding of a new nodule, suspicious for neoplasia. Review of Systems Review of Systems: Generalized weakness Constitutional: Constitutional: Denies chills, Reports fatigue, Denies fever(s), Reports lethargy, Denies malaise, Denies night sweats, Denies poor appetite and Reports weakness Eyes: Eyes: Denies change in vision ENT: Denies dysphagia, Denies vertigo, Denies dizziness and Denies odynophagia Cardiovascular: Cardiovascular: Denies chest pain, Denies lightheadedness, Denies radiating jaw, neck or arm pain and Denies palpitations Respiratory: Respiratory: Denies change in phlegm color, Denies chest congestion, Denies cough, Denies pain on inspiration and Denies dyspnea Gastrointestinal: Gastrointestinal: Denies abdominal pain, Denies dyspepsia, Denies heartburn, Denies diarrhea, Denies nausea and Denies vomiting Genitourinary: Genitourinary: Denies dysuria Musculoskeletal: Musculoskeletal: Denies back pain, Denies joint swelling and Denies muscle weakness Integumentary/Breasts: Skin/Breast: Denies rash Neurologic: Denies vertigo, Denies dizziness, Denies focal weakness and Denies Sensory deficit (Neuro) Psychiatric: Psychiatric: Reports no additional psychiatric complaints and Reports as per HPI Endocrine: Endocrine: Denies cold intolerance, Denies flushing, Denies heat intolerance, Denies polyphagia, Denies polydipsia and Denies palpitations Hematologic/Lymphatic: Hematologic/Lymphatic: Reports no additional
[2022-07-01] MEDS: NICOTINE (*PBKC) 14 MG PATCH 1 PATCH TRANSDERM (23:56)
[2022-07-02] VITALS (16 sets, daily range): BP systolic 130–152; BP diastolic 53–65; PULSE 69–97; RESP 18–22; TEMP 35.9–37.3; O2SAT 91–95; BMI 21.4
[2022-07-02] MEDS: traMADol HCL (*CRX) 50 MG TABLET PO ×4 (01:08→20:51)
[2022-07-02] MEDS: IPRATROPIUM BR 0.02% INH SOLN 0.5 MG/2.5 ML VIAL INHALATION ×4 (01:47→21:08)
[2022-07-02] MEDS: ALBUTEROL SULFATE NEB 2.5 MG/3 ML INH 5 MG INHALATION (01:47)
[2022-07-02] MEDS: ALBUTEROL SULFATE NEB 2.5 MG/3 ML INH INHALATION ×3 (09:18→21:08)
--- NOTE | 2022-07-02 09:42 | PM.CNPUL ---
Assessment and Plan Assessment and plan (1) Lung mass: Code(s): R91.8 - Other nonspecific abnormal finding of lung field Status: Acute Assessment and Plan: Patient has a significant tobacco history and is currently smoking with an enlarging left upper lobe spiculated mass now measuring 1.9 x 2.4 cm with a satellite lesion 1.1 cm. Patient also has a possible 3.1 cm right hilar mass with chronic right lower lobe and right middle lobe collapse that was evident on 03/04/2021. on 03/04/2021 the patient declined bronchoscopy. I have again explained the benefits and risks of bronchoscopy to the patient and at this time she wishes to discuss this with her family. The patient has declined bronchoscopy on 03/04/2021 and now the patient has progression of her presumed cancer and is requiring 2 L nasal cannula oxygen making the procedure more risky at this time. I have spoken to the oncologist, Dr. Richards, and the patient may be a candidate for radiation therapy and or chemotherapy without a tissue diagnosis. If desired, she can follow up with Oncology or radiation oncology as an outpatient. (2) COPD (chronic obstructive pulmonary disease): Code(s): J44.9 - Chronic obstructive pulmonary disease, unspecified Status: Acute Assessment and Plan: Patient with 130 pack year tobacco use, diffuse panlobular emphysema on her CT scan of the chest. I have no PFTs. The patient has no wheezing and I do not think the patient has a COPD exacerbation. At this time I will continue nebulized albuterol and ipratropium Q 6 hours. I do not recommend inhaled or systemic steroids at this point. Goal saturation greater than 90% and currently she is on 2 L with saturations 93%. (3) Pneumonia: Code(s): J18.9 - Pneumonia, unspecified organism Status: Acute Assessment and Plan: The patient has chronic right middle lobe and right lower lobe collapse since 03/05/2021 likely related to cancer. She also has a leukocytosis at 19.2 with cough and phlegm production but no fever, chills or rigors. COVID, influenza and RSV RT PCR studies negative, blood cultures pending. The patient may have a pneumonia and agree with ceftriaxone and azithromycin which were started on 07/01/2022. Discussed with Dr. Garner, will follow with you. History of Present Illness History of Present Illness Consult date: 07/02/22 Chief complaint: Pneumonia, hypoxia, COPD Narrative: 07/02/2022: This is a new pulmonary consult for right hilar mass and left upper lobe lung nodules. 82-year-old woman with a history of 130 pack year tobacco use, currently smoking 2 packs a day with severe panlobular emphysema on CT scan from 03/04/2021. Patient had a right hilar mass and a left upper lobe 1 cm nodule on 03/04/2021. At that time she was seen by pulmonary team and she wished for no bronchoscopy or diagnostic workup because if this was cancer she would not want any treatment. At baseline she lives alone she can do her cooking and cleaning, she walks in the grocery store without having to stop for shortness of breath and she tells me she has no limitations in her activity of daily living from a respiratory standpoint. Patient is a current smoker at 2 packs per day since age 17, 130 pack years, patient was exposed to secondhand smoke from both of her parents as well as her 's. 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 She denies stand blasting, welding, asbestos were, professional painting or steel cnc mill and lathe operator. The patient presented to the hospital on 07/01/2022 with anorexia, weakness but denied fever, chills, shakes or shortness of breath at rest or with ambulation. She has a chronic cough and this is increased over the last 2-3 weeks and she is producing clear white phlegm with no blood. In the emergency department she had a white blood cell count of 19.2, creatinine of 0.4, serum bicarbonate 27, A
--- NOTE | 2022-07-02 11:38 | PM.IMPN ---
Progress Note: A&P Assessment and Plan (1) Lung mass: Code(s): R91.8 - Other nonspecific abnormal finding of lung field Status: Acute Assessment and Plan: Patient states that 1 pursue treatment or diagnosis I have requested pulmonology consult nonetheless Supportive care 07/02/2022 interval history: 82 y/o with long history of smoking and currently smoking presented to the ER with c/o generalized weakness, patient has chronic pulmonary masses and seen by her bellmaker and discussed, patient does not want biopsy, bronchoscopy, chemotherapy or radiation therapy, may take oral chemo if availble, also discussed with patient regarding comfort care or hospice, patient is not ready for that yet, Dr. Eduar Richards, oncologist and any possible oral treatment option for the patient, will continue to monitor and further recommendation to follow. (2) Pneumonia: Code(s): J18.9 - Pneumonia, unspecified organism Status: Acute Assessment and Plan: Patient started on Rocephin and ceftriaxone (3) COPD (chronic obstructive pulmonary disease): Code(s): J44.9 - Chronic obstructive pulmonary disease, unspecified Status: Acute Assessment and Plan: Breathing treatments as needed Not actively wheezing (4) Generalized osteoarthritis of multiple sites: Code(s): M15.9 - Polyosteoarthritis, unspecified Status: Acute Assessment and Plan: Tylenol as needed (5) Nicotine dependence: Code(s): F17.200 - Nicotine dependence, unspecified, uncomplicated Status: Acute Assessment and Plan: Nicotine patch Subjective Date/time seen: 07/02/22 11:38 Generalized weakness HPI-Narrative: This is an 82-year-old female with past medical history significant for COPD/emphysema, current everyday smoker of 2 packs of cigarettes a day patient presented to the emergency room due to generalized weakness.? Denies any fevers, she has a cough but is nonproductive, denies years rigors, denies chills no nausea no vomiting no diarrhea no weight loss.? Preliminary workup was significant for chest x-ray was reported as: alfred, tubes, and devices:? None. Lungs and pleura:? Low lung volumes, worse on the right. New significant right hemidiaphragm elevation. Diffuse reticular and patchy groundglass opacities. Persistent obscuration of the right heart border and right hemidiaphragm. Possible right lateral costophrenic angle blunting. Redemonstration of a left upper lobe nodule. Cardiomediastinal silhouette:? Stable. Other:? No acute osseous or upper abdominal finding. 07/02/2022 interval history: 82 y/o with long history of smoking and currently smoking presented to the ER with c/o generalized weakness, patient has chronic pulmonary masses and seen by her bellmaker and discussed, patient does not want biopsy, bronchoscopy, chemotherapy or radiation therapy, may take oral chemo if availble, also discussed with patient regarding comfort care or hospice, patient is not ready for that yet, Dr. Eduar Richards, oncologist and any possible oral treatment option for the patient, will continue to monitor and further recommendation to follow. Review of Systems Constitutional: Constitutional: Denies chills, Reports fatigue, Denies fever(s), Reports lethargy, Denies malaise, Denies night sweats, Denies poor appetite and Reports weakness Eyes: Eyes: Reports no additional eye complaints ENT: Reports system reviewed and no additional complaints, except as documented Cardiovascular: Cardiovascular: Reports no additional cardiovascular complaints Respiratory: Respiratory: Reports no additional respiratory complaints Gastrointestinal: Gastrointestinal: Reports no additional gastrointestinal complaints Musculoskeletal: Musculoskeletal: Reports no additional musculoskeletal complaints Neurologic: Reports system reviewed and no additional complaints, except as documented
[2022-07-03] VITALS (18 sets, daily range): BP systolic 113–150; BP diastolic 53–58; PULSE 67–102; RESP 18; TEMP 36.4–37.3; O2SAT 87–97
[2022-07-03] MEDS: traMADol HCL (*CRX) 50 MG TABLET PO ×3 (00:57→11:49)
[2022-07-03] MEDS: ALBUTEROL SULFATE NEB 2.5 MG/3 ML INH INHALATION ×3 (02:43→14:35)
[2022-07-03] MEDS: IPRATROPIUM BR 0.02% INH SOLN 0.5 MG/2.5 ML VIAL INHALATION ×3 (02:43→14:35)
--- NOTE | 2022-07-03 14:37 | PCOTNOTE ---
Attempted to see pt. for occupational therapy evaluation. Pt. currently in room having home O2 evaluation completed, unable to participate at this time. Nursing aware. Following.
--- NOTE | 2022-07-03 15:10 | HOMEO2EVAL ---
Evaluation was performed at [facility] Home Oxygen Evaluation RC: Home Oxygen (O2) Evaluation Start: 07/03/22 14:25 Freq: ONCE Status: Active Protocol: RPE Activity Type Activity Date Activity User E-sign Co-sign Detail Recorded Client Recorded Date Recorded By Document 07/03/22 14:00 [email or web address] [email or web address] 07/03/22 15:10 DJO Document 07/03/22 14:05 [email or web address] [email or web address] 07/03/22 15:10 DJO Document 07/03/22 14:10 [email or web address] [email or web address] 07/03/22 15:10 DJO Document 07/03/22 14:15 [email or web address] [email or web address] 07/03/22 15:10 DJO Document 07/03/22 14:20 [email or web address] [email or web address] 07/03/22 15:10 DJO Document 07/03/22 14:30 [email or web address] [email or web address] 07/03/22 15:10 DJO 07/03/22 07/03/22 07/03/22 14:00 14:05 14:10 Home O2 Evaluation [Oxygen] -Test Phase Resting Resting Resting -Oxygen Delivery Room Air Nasal Cannula Nasal Cannula -Oxygen Flow Rate (L/min) 1 2 [Pulse Oximetry] -Pulse Oximetry (90-100 %) 87 L 88 L 91 [Pulse Rate] -Pulse Rate (60-100 beats/min) 90 89 90 [Evaluation] -Activity Tolerance Good [Charges] -Treatment Charges O2 Evaluation - Inpatient 07/03/22 07/03/22 07/03/22 14:15 14:20 14:30 Home O2 Evaluation [Oxygen] -Test Phase Exercise Exercise Resting -Oxygen Delivery Nasal Cannula Nasal Cannula Nasal Cannula -Oxygen Flow Rate (L/min) 2 3 2 [Pulse Oximetry] -Pulse Oximetry (90-100 %) 88 L 91 91 [Pulse Rate] -Pulse Rate (60-100 beats/min) 99 102 H 90 [Evaluation] -Activity Tolerance Good [Charges] -Treatment Charges
--- NOTE | 2022-07-03 16:12 | PM.DS ---
DS: Admitting Diagnosis Discharge Date 07/03/2022 Admitting Diagnosis generalized weakness DS: Discharge Diagnosis Discharge Diagnosis (1) Lung mass: Code(s): R91.8 - Other nonspecific abnormal finding of lung field Status: Acute Assessment and Plan: Patient states that 1 pursue treatment or diagnosis I have requested pulmonology consult nonetheless Supportive care 07/02/2022 interval history: 82 y/o with long history of smoking and currently smoking presented to the ER with c/o generalized weakness, patient has chronic pulmonary masses and seen by her rn renal and discussed, patient does not want biopsy, bronchoscopy, chemotherapy or radiation therapy, may take oral chemo if availble, also discussed with patient regarding comfort care or hospice, patient is not ready for that yet, Dr. Eduar Richards, oncologist and any possible oral treatment option for the patient, will continue to monitor and further recommendation to follow. (2) Pneumonia: Code(s): J18.9 - Pneumonia, unspecified organism Status: Acute Assessment and Plan: Patient started on Rocephin and ceftriaxone (3) COPD (chronic obstructive pulmonary disease): Code(s): J44.9 - Chronic obstructive pulmonary disease, unspecified Status: Acute Assessment and Plan: Breathing treatments as needed Not actively wheezing (4) Generalized osteoarthritis of multiple sites: Code(s): M15.9 - Polyosteoarthritis, unspecified Status: Acute Assessment and Plan: Tylenol as needed (5) Nicotine dependence: Code(s): F17.200 - Nicotine dependence, unspecified, uncomplicated Status: Acute Assessment and Plan: Nicotine patch DS: Summary Hospital Course Reason for hospitalization: Generalized weakness Narrative: This is an 82-year-old female with past medical history significant for COPD/emphysema, current everyday smoker of 2 packs of cigarettes a day patient presented to the emergency room due to generalized weakness.? Denies any fevers, she has a cough but is nonproductive, denies years rigors, denies chills no nausea no vomiting no diarrhea no weight loss.? Preliminary workup was significant for chest x-ray was reported as: RESULT: Lines, tubes, and devices:? None. Lungs and pleura:? Low lung volumes, worse on the right. New significant right hemidiaphragm elevation. Diffuse reticular and patchy groundglass opacities. Persistent obscuration of the right heart border and right hemidiaphragm. Possible right lateral costophrenic angle blunting. Redemonstration of a left upper lobe nodule. Cardiomediastinal silhouette:? Stable. Other:? No acute osseous or upper abdominal finding. ? IMPRESSION: Diffuse pulmonary opacities may represent edema versus atypical infection. New right hemidiaphragm elevation. Possible small right pleural effusion. Persistent right middle and lower lobe collapse. Persistent left upper lobe nodule. Recommendation from the prior CT are unchanged. A CT of the chest was reported as: CHEST: Thoracic aorta: Anemia. Mild ectasia. Moderate arch calcification. Lung parenchyma and airways: Significant interval increase in size of the previously described left upper lobe nodule now measuring 22 mm. The additional spiculated left upper lobe nodule that was previously detected is smaller and is likely benign. New 11 millimeter nodule in the left upper lobe. Persistent right middle and right lower lobe collapse. Fluid-filled/obstructed right middle and lower lobe bronchi. Thoracic inlet, axillae and chest wall: No thyroid or soft tissue mass. No axillary lymphadenopathy. Mediastinum: Possible 3.1 cm right hilar mass. Heart and pericardium: Normal heart size. No pericardial effusion. Coronary artery calcifications: Mild. Pleura: Trace right pleural fluid collection. Upper abdomen: No significant finding. Thoracic bones: No acute osseous finding in the chest.
== END 2022-07-03 17:20 | disposition home or self-care (01) | DRG 195 ==
LOC: ANHED 18:24 → ANH2MED 20:13
PROVIDERS: Admitting Provider Student in an Organized Health Care Education/Training Program; Emergency Provider Emergency Medicine; PCP Nurse Practitioner Family; Visit Provider Family Medicine
DX: R91.8 Other nonspecific abnormal finding of lung field; J18.9 Pneumonia, unspecified organism; J43.1 Panlobular emphysema; M15.9 Polyosteoarthritis, unspecified; F17.210 Nicotine dependence, cigarettes, uncomplicated; M47.816 Spondylosis without myelopathy or radiculopathy, lumbar region; Z20.822 Contact with and (suspected) exposure to COVID-19; Z90.710 Acquired absence of both cervix and uterus; Z90.49 Acquired absence of other specified parts of digestive tract
CPT/HCPCS: 36415; 36600; 71045; 71250; 80053; 81001; 82375; 82805; 83050; 85025; 85610; 85730; 87040; 87637; 93005; 94618; 94640; 96365; 96367; 99285; A9270; G0378; J0456; J0696

== ENCOUNTER 2022-07-18 10:33 | Outpatient (CLI) | payer MEDICARE, SELFPAY ==
--- NOTE | ~2022-07-18 | PE_ITS ---
EXAMINATION: PET skull to mid thigh DATE: 07/18/2022 13:12 INDICATION: Malignant neoplasm of upper lobe of left lung. TECHNIQUE: Blood glucose level was 91 mg/dL. 9.404 mCi of 18-fluorodeoxyglucose (18-FDG) was administ ered i.v. Low dose computed tomography (CT) images were acquired from the base of the brain to the pr oximal thighs for attenuation correction and anatomic localization. Automated exposure control was em ployed. Dose-length product (DLP) was 366 mGy-cm. Positron emission tomography (PET) images were acqu ired in the same distribution. COMPARISON: Chest CT 07/01/2022, 03/04/2021 FINDINGS: Head/neck: There is increased activity in the oral cavity, pharynx, major salivary glands, and glotti s without abnormal CT correlate, likely physiologic. There are no pathologically enlarged lymph nodes . Chest: There is severe emphysema. There is chronic collapse of right middle lobe and right lower lobe . 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 There is increased activity in bronchus inte rmedius and right lower lobe with maximum SUV of 19.2. There is right hilar lymphadenopathy with incr eased activity. Calcified pulmonary nodules and calcified hilar lymph nodes are consistent with old g ranulomatous disease. There is a 2.0 cm nodule left upper lobe with maximum SUV of 23.2. There is a 1 .1 cm nodule in left upper lobe with maximum SUV of 10.9. There is left hilar lymphadenopathy with in creased activity. There is mild scarring at the lung apices. No pleural effusion. Cardiomegaly is not ed. There are coronary artery calcifications. No pericardial effusion. Abdomen/pelvis/proximal thighs: The liver, gallbladder, spleen, pancreas, are normal. There is thicke yasmine of left adrenal gland. There is increased activity in the adrenal glands. The kidneys are normal . There is diverticulosis of the colon without evidence of diverticulitis. There are no dilated loops of bowel. There are no pathologically enlarged lymph nodes. There is no free intraperitoneal fluid. There is no specific evidence of osseous malignancy. IMPRESSION: 1. Ill-defined right hilar mass involving bronchus intermedius with chronic collapse of right lower l obe and right middle lobe and increased activity in right lower lobe, consistent with malignancy and postobstructive pneumonia. Metastatic disease involving left lung nodules, bilateral hilar lymph node s, and the bilateral adrenal glands. 2. Severe emphysema. Reviewed, dictated and finalized at location [facility]. [facility] IMPRESSION: 1. Ill-defined right hilar mass involving bronchus intermedius with chronic col lapse of right lower lobe and right middle lobe and increased activity in right lower lobe, consistent with malignancy and postobstructive pneumonia. Metastat ic disease involving left lung nodules, bilateral hilar lymph nodes, and the bi lateral adrenal glands. 2. Severe emphysema.
[2022-07-18 11:13] LABS: Glucose Point of Care 91 mg/dl (65-105)
== END 2022-07-18 10:34 | disposition home or self-care (01) ==
PROVIDERS: PCP Nurse Practitioner Family; Visit Provider Internal Medicine Hematology & Oncology
DX: C34.92 Malignant neoplasm of unspecified part of left bronchus or lung (principal); R91.8 Other nonspecific abnormal finding of lung field; C77.8 Secondary and unspecified malignant neoplasm of lymph nodes of multiple regions; J43.9 Emphysema, unspecified
CPT/HCPCS: 78815; A9552